=== PATIENT | female | born 1980 | race Caucasian/White ===

== ENCOUNTER 2018-06-30 19:42 | Emergency (ER) | payer MEDICAID, SELFPAY ==
[2018-06-30 19:44] VITALS: BP 133/83; PULSE 86; RESP 17; TEMP 36.7; O2SAT 96; BMI 48.0
--- NOTE | 2018-06-30 19:54 | CT_ITS ---
STUDY: CT ABDOMEN AND PELVIS WITHOUT CONTRAST REASON FOR EXAM: Female, 38 years old. Sharp right-sided abdominal pain since 6:00 tonight, emesis RADIATION DOSAGE (If Supplied By Facility): CTDIvol = ( 23.98 ) mGy, DLP = ( 1360.30 ) mGycm TECHNIQUE: Transaxial images were obtained from the dome of the diaphragm to the symphysis pubis without oral contrast, and without intravenous contrast. Sagittal and coronal images were reconstructed. Individualized dose optimization techniques were used for this CT. COMPARISON: None. FINDINGS: Parenchymal consolidation of the right middle lobe is partially visualized. The visualized portions of the heart are within normal limits. Normal liver. There is a solitary gallstone. Normal spleen. Normal pancreas. Normal bilateral adrenal glands. 4 mm calculus in the proximal right ureter is identified on image 111. There is mild asymmetric right perinephric stranding with minimal amount of collecting system fullness. No additional urinary tract calcifications are seen. There is small parapelvic cysts of the left kidney. Normal visualized stomach. Normal small intestine. Normal colon. The appendix is visualized and appears normal. Normal abdominal aorta. Normal inferior vena cava. Normal retroperitoneum. Normal urinary bladder. There is absence of the uterus consistent with a prior hysterectomy. Tubal ligation surgical clips are present. Normal abdominal wall. Normal osseous structures. CT/Abdomen/Pelvis without Cont IMPRESSION: 1. 4 mm proximal right ureter calculus with minimal right hydronephrosis and perinephric stranding. 2. Right middle lobe consolidation could represent pneumonia or atelectasis. Electronically Signed: Aaron Severino MD at 21:06 EST , Service support ,
--- NOTE | 2018-06-30 19:54 | ED.VISSUMM ---
- ER Visit Summary Date of Service: 06/30/18 Chief Complaint: Right-sided abdominal pain/flank pain History of Present Illness: The patient is a 38 F who complains of right flank pain and abdominal pain. It started about 2 hours ago. Started off as dull and then went to sharp pains. Nothing makes his pain better or worse. She has had nausea with one episode of vomiting. Denies diarrhea or constipation. Denies any urinary symptoms. She denies fevers. She has no history of kidney stones in the past. She tried Pamprin at home without any relief. Physical Examination: Vital signs reviewed. HEENT exam unremarkable. Heart is regular rate and rhythm without murmurs. Lungs are clear to auscultation. Abdomen is soft with right-sided abdominal tenderness to palpation. Extremities reveal no edema. Skin exam normal. Neurologic exam normal. Test Results: Laboratory studies are unremarkable except for chloride of 108 and glucose 123. Urinalysis reveals 5-10 red blood cells. CAT scan reveals a 4 mm proximal ureteral stone. There is right middle lobe atelectasis as well. Emergency Department Course and Treatment: Patient was given IV fluids and IV Toradol. She feels much better. Patient will be discharged with naproxen and [place]. She will follow-up with urology Treatment Plan: [] Disposition: Discharge Impression: Right ureterolithiasis This note was generated with [email or web address] dictation software. It may contain incorrect words, spelling, and punctuation that were not noted in review of the chart prior to signing ED Disposition - Plan for ED Patient: Chief Complaint: Abd Pain Referrals: Urmila Cui PA [Primary Care Provider] -
[2018-06-30] MEDS: 0.9% Normal Saline 1,000 ML 250 ML IV (20:04)
[2018-06-30] MEDS: Ketorolac 30 MG/ML Syringe IV (20:05)
[2018-06-30] MEDS: Ondansetron 4 MG/2 ML Vial IV (20:05)
[2018-06-30 20:16] LABS: Absolute Lymphocyte Count 2.88 X10^3/ul (0.83-4.51); Absolute Neutrophil Count 6.8 X10^3/uL (2.0-7.7); Basophil# 0.06 X10^3/uL; Basophil% 0.6 % (0-1); Eosinophil# 0.29 X10^3/uL; Eosinophils% 2.7 % (0-5); Hematocrit 38.3 % (37-47); Hemoglobin 13.1 g/dl (12.0-15.0); Lymphocyte # 2.88 X10^3/ul (4.0); Lymphocyte % 26.6 % (19-41); Mean Corp Hgb Conc 34.2 g/gl (32-36); Mean Corpuscular Hgb 31.3 pg (27.0-32.0); Mean Corpuscular Volume 91.4 fL (81-99); Mean Platelet Vol. 9.8 fl (6.2-12.0); Monocyte# 0.77 X10^3/uL; Monocyte% 7.1 % (0-10); Neutrophil # 6.79 X10^3/uL (2.7-7.7); Neutrophil % 62.5 % (47-70); Platelet Count 318 K/mm3 (150-450); RBC Distribution Width CV 13.8 % (11.6-14.6); RBC Distribution Width SD 44.9 fl (35.1-43.9); Red Blood Count 4.19 M/mm3 (4.2-5.4); White Blood Count 10.8 K/mm3 (4.4-11.0)
[2018-06-30 20:21] LABS: POSITIVE COUNT NO; POSITIVE DIFFERENTIAL NO; POSITIVE MORPHOLOGY NO
[2018-06-30 20:37] LABS: Anion Gap 9 (5-15); BUN 13 mg/dL (7-18); BUN/Creat Ratio 13.2 RATIO (10-20); Calcium,Total 8.9 mg/dL (8.5-10.1); Chloride 108 mmol/L (98-107); Creatinine, Serum 0.99 mg/dL (0.55-1.02); EST Glomerular Filtration Rate 67 mL/min (>60); Est Glom Filt Rate - Afr Amer 81 mL/min (>60); Estimated Creatinine Clearance 71.42 ml/min; Glucose 123 mg/dL (74-106); Potassium 4.3 mmol/L (3.5-5.1); Sodium Level 140 mmol/L (136-145)
[2018-06-30 22:12] LABS: Bacteria 0 SEEN /hpf (None Seen)
[2018-06-30 22:30] LABS: Color, Urine Yellow (Yellow); Glucose, Dipstick Normal (Normal); Ketone-Dipstick Negative (Negative); Leukocyte Esterase-Dipstick 25 /ul (Negative); Nitrite-Dipstick Negative (Negative); Occult Blood-Urine 50 /ul (Negative); Protein-Dipstick 15 mg/dl (Negative); Urine Bilirubin Dipstick Negative (Negative); Urine Clarity Sl Cldy (Clear); Urine Urobilinogen Normal (Normal); Urine pH 6.5 (5.0 - 8.0)
[2018-06-30 22:32] LABS: Mucous, Urine 1+ /hpf (<or=2+); Red Blood Cells-Urine 5-10 SEEN /hpf (0-5); Squamous Epithelial Cells - UA 0-5 SEEN /hpf (5-10); White Blood Cells 0-5 SEEN /hpf (0-5)
--- NOTE | 2018-06-30 22:40 | DCINST.ED_ITS ---
ED Disposition - Plan for ED Patient: Disposition: Home or Assisted Living Chief Complaint: Abd Pain Instructions: ED Stone Renal W Colic Prescriptions: Hydrocodone Bitart/Apap 5-325 [[employer] 5MG-325MG] 1 tab PO Q6H PRN PRN 3 Days #10 tab PRN Reason: Pain Naproxen [Naprosyn] 500 mg PO BID PRN #20 tab Referrals: Urmila Cui PA [Primary Care Provider] -
[2018-06-30 22:52] VITALS: BP 131/80; PULSE 69; RESP 16; O2SAT 96
[2018-07-01] MEDS: HYDROcodone Bitartrate/Apap 5/325 Tablet PO (01:11)
== END 2018-06-30 22:59 | disposition home or self-care (01) ==
PROVIDERS: Emergency Medicine; Emergency Provider Emergency Medicine; Family Provider Radiology Diagnostic Radiology; PCP Physician Assistant
DX: N20.1 Calculus of ureter (principal); Z79.899 Other long term (current) drug therapy
CPT/HCPCS: 74176; 80048; 81001; 85025; 96361; 96374; 96375; 99283; J7030; J2405